=== PATIENT | male | born 1975 | race Caucasian/White ===

== ENCOUNTER 2023-05-18 09:59 | Inpatient (IN) ==
--- NOTE | 2023-05-18 11:01 | XRay Report ---
XR chest 1V portable HISTORY: 48 years-old Male cp/ pain with inspiration COMPARISON: None TECHNIQUE: AP view the chest FINDINGS: Cardiac silhouette is enlarged. No pneumothorax, pleural effusion, airspace consolidation or pulmonar y edema. Bones appear grossly intact. IMPRESSION: Cardiomegaly without acute process. ACT 112: Negative or not required by law. The above report was generated using voice recognition software. It may contain grammatical, syntax o r spelling errors. Electronically signed by: Brandon Agosto M.D. 05/18/2023 10:59 AM
[2023-05-18 11:07] LABS: Basophils # (auto) 0.03 K/uL (0.00-0.20); Basophils % (auto) 0.3 %; Eosinophils # (auto) 0.13 K/uL (0.00-0.50); Eosinophils % (auto) 1.2 %; Hematocrit (blood only) 44.8 % (42.0-52.0); Hemoglobin 15.2 g/dl (14.0-18.0); Immature Granulocytes # (auto) 0.05 K/uL (0.01-0.20); Immature Granulocytes % (auto) 0.5 %; Lymphocytes # (auto) 2.51 K/uL (1.20-3.40); Lymphocytes % (auto) 23.5 %; Mean Corpuscular Hemoglobin 28.3 pg (25.0-34.0); Mean Corpuscular Hgb Conc 33.9 g/dL (32.0-36.0); Mean Corpuscular Volume 83.4 fL (80.0-100.0); Monocytes # (auto) 0.72 K/uL (0.11-0.59); Monocytes % (auto) 6.8 %; Neutrophils # (auto) 7.22 K/uL (1.40-6.50); Neutrophils % (auto) 67.7 %; Platelet Count 198 K/uL (130-400); RDW Coefficient of Variation 12.4 % (11.5-14.5); RDW Standard Deviation 37.6 fL (36.4-46.3); Red Blood Count 5.37 M/uL (4.70-6.10); White Blood Count 10.66 K/ul (4.8-10.8)
[2023-05-18 11:23] LABS: Albumin Globulin Ratio 1.5 (0.9-2); Albumin Level 4.2 gm/dl (3.4-5.0); BUN Creatinine Ratio 14.2 (10-20); Bilirubin,Total 2.5 mg/dl (0.2-1.0); Calcium 9.4 mg/dl (8.6-10.3); Creatinine Clr Calc Pharmacy 114.6 ml/min; Est GFR (African American) 83.5 ml/min; Est GFR (Non-African American) 72.1 ml/min; Globulin 2.8 gm/dl (2.5-4.0); Potassium 3.7 mmol/L (3.5-5.1)
--- NOTE | 2023-05-18 11:28 | Emergency Department Note ---
Impression & Plan Chest pain, Cholecystitis, Abnormal EKG ED Provider Note NAME: BASILIO BARRETT AGE: 48 SEX: M : 1975 ARRIVES VIA: Ambulance INFORMANT: Patient, ED PROVIDER(S): Tawanda Bond DO CHIEF COMPLAINT: Chest pain HPI: The patient is a 48-year-old male who presented to the emergency department for an evaluation of chest pain. The patient called 911. He was at his ask. He was not exerting himself. He noticed an acute onset of chest discomfort. At that time he was diaphoretic and feeling very short of breath. He arrived via ambulance. He received nitroglycerin spray as well as aspirin prior to arrival. Upon arrival here the patient's pain is significantly improved. The patient denies having any leg swelling. He does have a family history in his father of coronary artery disease. He does not have a history of tobacco use or diabetes but does have a history of hypertension. ROS: See above HPI for pertinent positives & negatives. A total of 10 systems reviewed and were otherwise negative. PAST MEDICAL HISTORY: See Below PAST SURGICAL HISTORY: See Below FAMILY HISTORY: See Below SOCIAL HISTORY: See Below HOME MEDICATIONS: See Below ALLERGIES: See Below VITALS: See Below PHYSICAL EXAMINATION: GENERAL: Patient is awake alert in no acute distress patient is resting comfortably and showing no signs of anxiety EYES: The conjunctivae are clear. The pupils are round and reactive. EARS, NOSE, MOUTH AND THROAT: The nose is without any evidence of any deformity. NECK: The neck is nontender and supple. RESPIRATORY: Normal respiratory effort is noted there is no evidence of wheezing rhonchi or rales CARDIOVASCULAR: Regular rate and rhythm noted there no murmurs rubs or gallops normal S1 normal S2. GASTROINTESTINAL: The abdomen is soft. Abdomen is nontender. MUSCULOSKELETAL/EXTREMITIES: There is no evidence of gross deformity full range of motion is noted in the hips and shoulders. SKIN: There is no obvious evidence of any rash. There are no petechiae, pallor or cyanosis noted. NEUROLOGIC: Patient is awake alert and oriented x3 MEDICAL DECISION MAKING: The patient is a 48-year-old male who presented to the emergency department for evaluation of chest discomfort. The patient described lower chest pain. Upon arrival he was found to have an abnormal EKG with what appeared to be Wellens T wave inversions in the anterior leads. The patient was significantly improved with his pain. He did not have an acute surgical abdomen on my physical exam. For this reason the patient had initial work-up of his pain in the emergency d epartment including serial troponin measurements serial EKG measurements as well as an ultrasound when his laboratory studies reveal elevation in his liver function studies. The patient does have a family history of coronary artery disease. I discussed his condition with the on-call metal trim erector as well as the hospitalist group and the general surgical group. Given the patient's elevation in his bilirubin they requested an MRCP prior to proceeding forward with any surgical intervention on the presumed cholecystitis noted on ultrasound. I did receive a message from the reading radiologist after the patient was already admitted but the patient had findings consistent with an aortic dissection on the MRCP. I discussed this again with the [facility] hospitalist. Preparations were made for transfer to a tertiary center for vascular surgery evaluation. The patient did not receive heparin. The patient had blood pressure control with IV blood pressure medications once the diagnosis was made in the [facility]ist group. Triage Nursing notes reviewed. Prior medical records reviewed Vital Signs: reviewed and remarkable for Elevated blood pressure. Differential diagnosis: Cardiac ischemia, aortic dissection, pulmonary embolism, pneumothorax, pneumonia, pericarditis, myocarditis, esophageal rupture, GERD, cholecystitis, pancreatitis, musculoskeletal, as well as other pathologies. ER treatment provided: See below Diagnostics interpreted by me: ECG: EKG was obtained in the emergency department. My interpretation is sinus bradycardia at 50 bpm. PAC was noted. There is no acute ST segment abnormalities noted. A biphasic T wave is noted in the anterior leads. This could be consistent with ischemia. No previous EKG was noted A second EKG was obtained in the emergency department. The patient was pain- free with this EKG. My interpretation is normal sinus rhythm at 74 bpm. There is no ectopy. There is no acute ST segment abnormalities noted. The biphasic T wave has now resolved. Prehospital was obtained in the emergency department. My interpretation is sinus bradycardia at 50 bpm. PAC was noted.. There is no acute ST segment a bnormalities noted. This looks similar to the EKG was obtained in the emergency department Cardiac Monitoring: An order was placed for continuous cardiac monitoring. The monitor shows a rate of 77 bpm with sinus rhythm. Laboratory studies: As stated above and show below. Imaging studies: See below. Radiographic imaging was reviewed by myself Consultation(s): I discussed this case with Dr. Cerda who is on-call for [facility] rdiology. I discussed this case with Isaura who is on for general surgery. I discussed this case with Dr. Diaz who is on-call for the [facility] hospitalist group. ED COURSE: Procedures: none The patient was placed in observation status at 1024. The patient was placed in observation for chest pain work-up. During the time in observation, the patient was frequently reassessed and received Serial troponin measurements as well as serial EKGs. On Final reassessment the patient Was found to have no elevation in his troponin or worsening ischemic changes on EKG and the patient will be Evaluated by the hospitalist for inpatient management given his abnormal EKG at this time. A total observation time of 2 hours. Past Med/Surg History Medical History Hypertension Social History Smoking Status: Never smoker Second Hand Exposure: No; Hx Alcohol Use: No Hx Substance Use: No Preferred Language: Swedish Communication Ability: Effective Fur Pointer Required: No Beliefs That Will Affect Care: None Current Living Situation: Spouse Current Living Situation Comment: 2 story house Feels Safe at Home: Yes Safety Concerns: Feels Safe At This Time Assistive Devices: None Allergies Allergies Allergy/AdvReac Type Severity Reaction Status Date / Time morphine Allergy Intermediate WHEN GIVEN Verified 03/14/21 17:20 IV-ARM SWELLED UP Home Meds Home Medications Medication Instructions Recorded Confirmed No Known Home Medications 05/18/23 05/18/23 Results & Data (ED) Vital Signs Vital Signs - 24 hr 05/18/23 10:25 05/18/23 10:29 05/18/23 11:18 Temperature 36.9 C Temperature Source Temporal Artery Scan Pulse Rate 52 L 53 L Pulse Rate [Apical] Pulse Rate from SpO2 Sensor Pulse Rhythm [Apical] Pulse Strength [Apical] Respiratory Rate 18 Respiratory Effort / Characteristics Respiratory Depth Respiratory Pattern Blood Pressure 165/99 H Blood Pressure [Right Arm] Blood Pressure Mean 121 Blood Pressure Mean [Right Arm] Blood Pressure Position [Right Arm] Pulse Oximetry 96 98 Oxygen Delivery Method Room Air Room Air Sepsis Recent Fever Within 48 Hours No Sepsis New/Unexplained Change in Mental Status N/A Sepsis Action Taken by Nursing No Action Required 05/18/23 11:23 05/18/23 14:05 05/18/23 11:16 Temperature Temperature Source Pulse Rate 55 L Pulse Rate [Apical] 59 L 58 L Pulse Rate from SpO2 Sensor 62 Pulse Rhythm [Apical] Regular Regular Pulse Strength [Apical] Normal Normal Respiratory Rate 17 17 18 Respiratory Effort / Characteristics Non-Labored Spontaneous Non-Labored Spontaneous Respiratory Depth Normal Normal Respiratory Pattern Regular Regular Blood Pressure Blood Pressure [Right Arm] 161/99 H 143/96 H Blood Pressure Mean Blood Pressure Mean [Right Arm] 119 111 Blood Pressure Position [Right Arm] Semi-fowlers Semi-fowlers Pulse Oximetry 97 97 96 Oxygen Delivery Method Room Air Room Air Sepsis Recent Fever Within 48 Hours Sepsis New/Unexplained Change in Mental Status Sepsis Action Taken by Nursing 05/18/23 11:30 05/18/23 12:30 05/18/23 13:00 Temperature Temperature Source Pulse Rate 60 52 L 52 L Pulse Rate [Apical] Pulse Rate from SpO2 Sensor 56 L 56 L Pulse Rhythm [Apical] Pulse Strength [Apical] Respiratory Rate 17 21 24 Respiratory Effort / Characteristics Respiratory Depth Respiratory Pattern Blood Pressure 141/81 H 154/86 H Blood Pressure [Right Arm] Blood Pressure Mean 101 108 Blood Pressure Mean [Right Arm] Blood Pressure Position [Right Arm] Pulse Oximetry 95 97 Oxygen Delivery Method Sepsis Recent Fever Within 48 Hours Sepsis New/Unexplained Change in Mental Status Sepsis Action Taken by Nursing 05/18/23 13:01 05/18/23 13:30 05/18/23 13:31 Temperature Temperature Source Pulse Rate 63 54 L 60 Pulse Rate [Apical] Pulse Rate from SpO2 Sensor 51 L 69 Pulse Rhythm [Apical] Pulse Strength [Apical] Respiratory Rate 19 20 16 Respiratory Effort / Characteristics Respiratory Depth Respiratory Pattern Blood Pressure 165/80 H 159/103 H Blood Pressure [Right Arm] Blood Pressure Mean 108 121 Blood Pressure Mean [Right Arm] Blood Pressure Position [Right Arm] Pulse Oximetry 97 96 Oxygen Delivery Method Sepsis Recent Fever Within 48 Hours Sepsis New/Unexplained Change in Mental Status Sepsis Action Taken by Nursing 05/18/23 14:00 Temperature Temperature Source Pulse Rate 56 L Pulse Rate [Apical] Pulse Rate from SpO2 Sensor 64 Pulse Rhythm [Apical] Pulse Strength [Apical] Respiratory Rate 21 Respiratory Effort / Characteristics Respiratory Depth Respiratory Pattern Blood Pressure 143/96 H Blood Pressure [Right Arm] Blood Pressure Mean 111 Blood Pressure Mean [Right Arm] Blood Pressure Position [Right Arm] Pulse Oximetry 96 Oxygen Delivery Method Sepsis Recent Fever Within 48 Hours Sepsis New/Unexplained Change in Mental Status Sepsis Action Taken by Skilled Nursing Medications Current Medication List: was personally reviewed by me Laboratory Data Attestation: I reviewed the patient's lab results. 05/18/23 10:24 05/18/23 10:24 Lab Results 05/18/23 05/18/23 05/18/23 Range/Units 10:24 10:24 10:24 WBC 10.66 (4.8-10.8) K/ul RBC 5.37 (4.70-6.10) M/uL Hgb 15.2 (14.0-18.0) g/dl Hct 44.8 (42.0-52.0) % MCV 83.4 (80.0-100.0) fL MCH 28.3 (25.0-34.0) pg MCHC 33.9 (32.0-36.0) g/dL RDW Std Deviation 37.6 (36.4-46.3) fL RDW Coeff of Volodymyr 12.4 (11.5-14.5) % Plt Count 198 (130-400) K/uL MPV 10.0 (9.4-12.4) fL Immature Gran % (Auto) 0.5 % Neut % (Auto) 67.7 % Lymph % (Auto) 23.5 % [place] % (Auto) 6.8 % Eos % (Auto) 1.2 % Baso % (Auto) 0.3 % Neut # (Auto) 7.22 H (1.40-6.50) K/uL Lymph # (Auto) 2.51 (1.20-3.40) K/uL [place] # (Auto) 0.72 H (0.11-0.59) K/uL Eos # (Auto) 0.13 (0.00-0.50) K/uL Baso # (Auto) 0.03 (0.00-0.20) K/uL Immature Gran # (Auto) 0.05 (0.01-0.20) K/uL PT 12.4 H (9.0-12.0) Seconds INR 1.1 (0.9-1.1) APTT 28.2 (21.0-31.0) Seconds PTT Ratio 1.0 Sodium 137 (136-145) mmol/L Potassium 3.7 (3.5-5.1) mmol/L Chloride 101 (98-107) mmol/L Carbon Dioxide 31 (21-32) mmol/L Anion Gap 5 (3-11) BUN 17 (6-23) mg/dl Creatinine 1.20 (0.6-1.4) mg/dl Est Cr Clr Drug Dosing 114.6 ml/min Est GFR ( Amer) 83.5 ml/min Est GFR (Non-Af Amer) 72.1 ml/min BUN/Creatinine Ratio 14.2 (10-20) Glucose 112 H (70-99(Fasting)) mg/dl Calcium 9.4 (8.6-10.3) mg/dl Total Bilirubin 2.5 H (0.2-1.0) mg/dl Direct Bilirubin (0-0.2) mg/dl AST 95 H (13-39) U/L ALT 89 H (7-52) U/L Alkaline Phosphatase 49 (34-104) U/L Troponin I High Sens 6.6 (0-20) pg/ml Total Protein 7.0 (6.0-8.3) gm/dl Albumin 4.2 (3.4-5.0) gm/dl Globulin 2.8 (2.5-4.0) gm/dl Albumin/Globulin Ratio 1.5 (0.9-2) 05/18/23 Range/Units 13:18 WBC (4.8-10.8) K/ul RBC (4.70-6.10) M/uL Hgb (14.0-18.0) g/dl Hct (42.0-52.0) % MCV (80.0-100.0) fL MCH (25.0-34.0) pg MCHC (32.0-36.0) g/dL RDW Std Deviation (36.4-46.3) fL RDW Coeff of Volodymyr (11.5-14.5) % Plt Count (130-400) K/uL MPV (9.4-12.4) fL Immature Gran % (Auto) % Neut % (Auto) % Lymph % (Auto) % [place] % (Auto) % Eos % (Auto) % Baso % (Auto) % Neut # (Auto) (1.40-6.50) K/uL Lymph # (Auto) (1.20-3.40) K/uL [place] # (Auto) (0.11-0.59) K/uL Eos # (Auto) (0.00-0.50) K/uL Baso # (Auto) (0.00-0.20) K/uL Immature Gran # (Auto) (0.01-0.20) K/uL PT (9.0-12.0) Seconds INR (0.9-1.1) APTT (21.0-31.0) Seconds PTT Ratio Sodium (136-145) mmol/L Potassium (3.5-5.1) mmol/L Chloride (98-107) mmol/L Carbon Dioxide (21-32) mmol/L Anion Gap (3-11) BUN (6-23) mg/dl Creatinine (0.6-1.4) mg/dl Est Cr Clr Drug Dosing ml/min Est GFR ( Amer) ml/min Est GFR (Non-Af Amer) ml/min BUN/Creatinine Ratio (10-20) Glucose (70-99(Fasting)) mg/dl Calcium (8.6-10.3) mg/dl Total Bilirubin (0.2-1.0) mg/dl Direct Bilirubin 0.4 H (0-0.2) mg/dl AST (13-39) U/L ALT (7-52) U/L Alkaline Phosphatase (34-104) U/L Troponin I High Sens 8.0 (0-20) pg/ml Total Protein (6.0-8.3) gm/dl Albumin (3.4-5.0) gm/dl Globulin (2.5-4.0) gm/dl Albumin/Globulin Ratio (0.9-2) Administered Medications Discontinued Medications Esmolol HCl (Esmolol Bolus From Bag) 500 mg IV ONE ONE Stop: 05/18/23 19:01 Last Admin: 05/18/23 20:07 Dose: Not Given Documented By: TMG Esmolol HCl (Esmolol Bolus From Bag) 100 mg IV ONE ONE Stop: 05/18/23 20:58 Last Admin: 05/18/23 22:04 Dose: 100 mg Documented By: GABINOG Co-signed By: LELA Fentanyl Citrate (Fentanyl Citrate Pf 100 Mcg/2 Ml Vial) 50 mcg IV Q15M PRN PRN Reason: Pain Stop: 06/01/23 14:17 Last Admin: 05/18/23 15:08 Dose: 50 mcg Documented By: SURAJ Cefoxitin Sodium (Mefoxin) 2,000 mg in 60 mls @ 100 mls/hr IV NOW STA Stop: 05/18/23 13:43 Last Infusion: 05/18/23 14:14 Dose: 0 mls/hr Documented By: Admin: 05/18/23 13:29 Dose: 100 mls/hr Documented By: SURAJ Cefoxitin Sodium 2,000 mg/ (Dextrose) 60 mls @ 100 mls/hr IV Q6H CALISTA; Protocol Stop: 05/28/23 19:29 Last Infusion: 05/18/23 20:35 Dose: 0 mls/hr Documented By: Admin: 05/18/23 19:59 Dose: 100 mls/hr Documented By: MELLISSA Lactated Ringer's (Lr) 1,000 mls @ 125 mls/hr IV .Q8H CALISTA Stop: 06/17/23 16:57 Last Admin: 05/18/23 18:24 Dose: 125 mls/hr Documented By: PAGE Acetaminophen (Ofirmev) 1,000 mg in 100 mls @ 400 mls/hr IV Q8H PRN PRN Reason: pain/fever Stop: 05/21/23 17:03 Last Infusion: 05/18/23 18:25 Dose: 0 mls/hr Documented By: Admin: 05/18/23 17:21 Dose: 400 mls/hr Documented By: PAGE Esmolol HCl (Brevibloc) 2,500 mg in 250 mls @ 232.2 mls/hr IV .Q1H5M CALISTA; Protocol Stop: 06/17/23 18:59 Last Admin: 05/18/23 21:11 Dose: 300 mcg/kg/min, 232.2 mls/hr Documented By: MELLISSA Co-signed By: ELISA Titration: 05/18/23 21:05 Dose: 300 mcg/kg/min, 232.2 mls/hr Documented By: MELLISSA Co-signed By: HFS Titration: 05/18/23 20:46 Dose: 300 mcg/kg/min, 232.2 mls/hr Documented By: Titration: 05/18/23 20:44 Dose: 275 mcg/kg/min, 212.9 mls/hr Documented By: Titration: 05/18/23 20:18 Dose: 250 mcg/kg/min, 193.5 mls/hr Documented By: Titration: 05/18/23 20:04 Dose: 200 mcg/kg/min, 154.8 mls/hr Documented By: Titration: 05/18/23 19:48 Dose: 150 mcg/kg/min, 116.1 mls/hr Documented By: Titration: 05/18/23 19:38 Dose: 100 mcg/kg/min, 77.4 mls/hr Documented By: Admin: 05/18/23 19:28 Dose: 50 mcg/kg/min, 38.7 mls/hr Documented By: TMG Co-signed By: LELA Labetalol HCl (Labetalol Hcl Iv 5 Mg/Ml 20ml) 10 mg IV NOW STA Stop: 05/18/23 18:41 Last Admin: 05/18/23 20:07 Dose: Not Given Documented By: MELLISSA Ondansetron HCl (Ondansetron Inj 2 Mg/Ml 2 Ml Vial) 4 mg IV NOW STA Stop: 05/18/23 14:19 Last Admin: 05/18/23 14:25 Dose: 4 mg Documented By: SURAJ Imaging Data Attestation: I personally reviewed and interpreted this imaging study as follows: My Impression: 1 view chest x-ray was obtained in the emergency department. My interpretation is no free air or definite infiltrate, final report below. Radiologist's Impression: Chest X-Ray 05/18/23 10:30 XR chest 1V portable HISTORY: 48 years-old Male cp/ pain with inspiration COMPARISON: None TECHNIQUE: AP view the chest FINDINGS: Cardiac silhouette is enlarged. No pneumothorax, pleural effusion, airspace consolidation or pulmonary edema. Bones appear grossly intact. IMPRESSION: Cardiomegaly without acute process. ACT 112: Negative or not required by law. The above report was generated using voice recognition software. It may contain grammatical, syntax or spelling errors. Electronically signed by: Brandon Agosto M.D. 05/18/2023 10:59 AM Gallbladder Ultrasound 05/18/23 11:56 ABDOMINAL ULTRASOUND, RIGHT UPPER QUADRANT HISTORY: Acute upper abdominal pain upper abd pain. COMPARISON: None. FINDINGS: Limited exam secondary to patient body habitus. Pancreas: The pancreas is mostly obscured by bowel gas. Liver: Heterogeneous with possibly increased echogenicity. No hepatic mass identified. Gallbladder: Distended gallbladder with intraluminal sludge and layering cholelithiasis. Gallbladder wall is upper limits of normal at 3 mm. No definite pericholecystic fluid identified. Negative sonographic Watkins's sign. CBD: 0.4 cm. Right kidney: No hydronephrosis. IMPRESSION: 1. Cholelithiasis with gallbladder distention and borderline wall thickening. Findings are equivocal for acute cholecystitis. Findings could be correlated with nuclear medicine hepatobiliary scan. 2. No biliary ductal dilation. ACT 112: Negative or not required by law. Electronically signed by: Brandon Agosto M.D. 05/18/2023 1:03 PM Discharge Plan Visit Data Chief Complaint: Chest Pain Stated Complaint: CHEST PAIN, SOB, LEG WEAKNESS ED Provider: Tawanda Bond Discharge Problem: Chest pain, Cholecystitis, Abnormal EKG Patient Disposition: Admitted As Inpatient Discharge Instructions Interventions: ED Discharge Assessment Last Done: 05/18/23 17:59 Chest pain Qualifiers: Chest pain type: unspecified Qualified Code(s): R07.9 - Chest pain, unspecified
[2023-05-18 11:29] LABS: Troponin I High Sensitivity 6.6 pg/ml (0-20)
[2023-05-18 11:37] LABS: INR 1.1 (0.9-1.1); Partial Thromboplastin Time 28.2 Seconds (21.0-31.0); Prothrombin Time 12.4 Seconds (9.0-12.0)
--- NOTE | 2023-05-18 13:05 | Ultrasound Report ---
ABDOMINAL ULTRASOUND, RIGHT UPPER QUADRANT HISTORY: Acute upper abdominal pain upper abd pain. COMPARISON: None. FINDINGS: Limited exam secondary to patient body habitus. Pancreas: The pancreas is mostly obscured by bowel gas. Liver: Heterogeneous with possibly increased echogenicity. No hepatic mass identified. Gallbladder: Distended gallbladder with intraluminal sludge and layering cholelithiasis. Gallbladder wall is upper limits of normal at 3 mm. No definite pericholecystic fluid identified. Negative sonogr aphic Watkins's sign. CBD: 0.4 cm. Right kidney: No hydronephrosis. IMPRESSION: 1. Cholelithiasis with gallbladder distention and borderline wall thickening. Findings are equivocal for acute cholecystitis. Findings could be correlated with nuclear medicine hepatobiliary scan. 2. No biliary ductal dilation. ACT 112: Negative or not required by law. Electronically signed by: Brandon Agosto M.D. 05/18/2023 1:03 PM
[2023-05-18] MEDS ORDERED: cefOXitin 2,000 MG/60 ML BAG IV STA (13:08)
[2023-05-18 13:55] LABS: Bilirubin Direct 0.4 mg/dl (0-0.2)
--- NOTE | 2023-05-18 14:05 | XCELERA ---
[id number]
[2023-05-18] MEDS ORDERED: ONDANSETRON INJ 2 MG/ML 2 ML VIAL IV STA (14:18)
[2023-05-18] MEDS ORDERED: fentaNYL citrate PF 100 MCG/2 ML VIAL IV PRN (14:18)
--- NOTE | 2023-05-18 14:22 | History & Physical Report ---
Date of Service May 18, 2023 Assessment & Plan (1) Cholecystitis: Plan: Acute cholecystitis Elevated transaminitis, bilirubin, direct bilirubin - Gallbladder ultrasound: Cholelithiasis with gallbladder distention and borderline thickening. Equivocal for acute huber. - CXR: cardiomegaly. naf -Continue cefoxitin, surgery consulted No evidence of ductal obstruction; MRCP is pending. If evidence of ductal obstruction/stones are noted we will consult GI Surgery consulted Chest pain Initial concern for Biphasic T waves in V1/V2 ?Wellens.2 troponins negative. Echo is normal. Reviewed with cardiology, does not fit classic deep inversion pattern and no ST segment changes or other territorial signs of ischemia. Low suspicion that this represents ischemic etiology of his pain. Can follow clinically for chest pain, no additional ischemic work-up at this time. DVT prophylaxis: Lovenox Diet: N.p.o. Disposition: Medical/telemetry given initial chest pain, downgrade to MedSurg if stable CODE STATUS: Full code (2) Chest pain: History of Present Illness Primary Care Provider: IRA Garcia 10 minutes of pain in his chest and lightheaded. Did feel anxious an dshort of breath during the episode. NO prior history of this. He reports he has had intermittent stomach discomfort, right upper quadrant discomfort, and GERD symptoms. His episode of 10 minutes of pain seem to go up higher into his mid chest this time which is unusual and was associated shortness of breath approximately 10 minutes. He reports his father had a history of quad bypass in his early 60s, no other family history of heart disease or strokes. Patient has no prior cardiac history. He reports he is able to walk, go upstairs, and do general daily activities with no induction of chest pain or shortness of breath prior to this episode. He has not had episodes of chest pain at rest. He notes his pain did start after eating and is mostly located at his epigastrium/right sided epigastrium at time of assessment. Denies tobacco use. No history of diabetes or hypertension. Takes no medications. No antibiotic allergies. Does feel nauseous at time of admission Medical History: Reviewed Medications: Reviewed Surgical History: Reviewed Family history: Reviewed Allergies: Reviewed Social History: No tobacco, denies alcohol use Code Status: Full code Allergies Allergy/AdvReac Type Severity Reaction Status Date / Time morphine Allergy Intermediate WHEN GIVEN Verified 03/14/21 17:20 IV-ARM SWELLED UP Home Medications Medication Instructions Recorded Confirmed Type No Known Home Medications 05/18/23 05/18/23 History Past Med/Surg History Medical History Hypertension Social History Smoking Status: Never smoker Feels Safe at Home: Yes Physical Exam Physical Exam: General: A&Ox3. NAD. Cooperative. HEENT: Atraumatic, normocephalic. Pulm: CTAB A&P. -wheezes, -rales, -rhonchi. Symmetrical chest rise. No increased work of breathing. No respiratory distress. Cardiac: RRR, -mrg. Radial pulses intact and symmetrical. Abdominal: Right upper quadrant tenderness to palpation, mild epigastric tenderness to palpation. No rebound. Abdomen soft Extremities: Warm, dry. No edema Results & Data Results & Data Vital Signs (Past 12 Hours) Vital Signs Temp Pulse Pulse Resp BP BP Pulse Ox 05/18/23 11:23 59 L 17 161/99 H 97 05/18/23 11:18 53 L 05/18/23 10:29 98 05/18/23 10:25 36.9 C 52 L 18 165/99 H 96 O2 Del Method 05/18/23 11:23 Room Air 05/18/23 11:18 05/18/23 10:29 Room Air 05/18/23 10:25 Room Air PG Care Time/CCT Total # of Minutes Spent Total Time Spent with Patient: Total time spent is greater than 50% in coordination of care (as documented) at patient's floor/unit and/or counseling patient: Coding Level of Care Code 13030 INT INP/OBS CARE 2/55MIN Diagnoses Cholecystitis K81.9 Chest pain R07.9
[2023-05-18] MEDS ORDERED: ONDANSETRON INJ 2 MG/ML 2 ML VIAL IV PRN (14:40)
[2023-05-18] MEDS ORDERED: MoRPHine SULFATE 2 MG/ML CARP IV PRN (14:40)
--- NOTE | 2023-05-18 14:46 | Surgery Consultation ---
I saw and examined patient and agree with the above plan. Moderate tenderness in RUQ. Date of Consultation May 18, 2023 Assessment & Plan (1) Chest pain: (2) Cholecystitis: Plan 48 year-old male with no significant past medical history who presented to ED due to severe chest pain with shortness of breath, sweating, and nausea. Cardiac work-up negative. Labs show elevated t. bili, d. bili and lfts. Ultrasound equivocal for acute cholecystitis. Plan: Recommend further evaluation with MRCP to rule out biliary obstruction due to elevated bilirubin and lfts. Hospitalist admitted patient, no further ischemic work-up required, cardiology consulted in ED felt EKG changes likely not ischemic and chest pain referred from abdominal pain, ECHO unremarkable. Recommend IV antibiotics pain management will plan for laparoscopic cholecystectomy once MRCP obtain to rule out biliary obstruction, likely Sunday Discussed with Dr. wang who agrees with above. History of Present Illness Reason for Consultation: Possible cholecystitis elevated lfts Requesting Physician: Dr. Bond Attending Physician: Dr. Tona MD History of Present Illness Eber is a 48 year-old male who presented to emergency room this morning due to sudden onset of chest pain rating 9/10 with associated sweating, shortness of breath and nausea. States pain was sudden at 9 am. No history of similar pain. Thought he was having a heart attack. Denies of any recent issues with postprandial abdominal pain, bloating, nausea. No history of gallbladder issues. States father had cardiac bypass. Denies of any recent fever, chills, vomiting, changes in bowel habits, diarrhea, constipation, blood in stools, black/tarry stools, loren colored stools, dark tea colored urine. No history of abdominal surgeries. No blood thinning agents. ER work-up included labs which showed no leukocytosis. T. bili, d. bili, lfts elevated. Troponin x 2 negative. ECHO unremarkable. EKG reviewed with cardiology and felt to be not ischemic. Chest pain likely referred from abdominal pain. Eber currently states he is having more upper mid abdominal pain with radiation to his back rating 3/10. Comes in waves. The severe chest pain has resolved. Mild nausea. Has not had any pain medication. Allergies Allergy/AdvReac Type Severity Reaction Status Date / Time morphine Allergy Intermediate WHEN GIVEN Verified 03/14/21 17:20 IV-ARM SWELLED UP Home Medications Medication Instructions Recorded Confirmed Type No Known Home Medications 05/18/23 05/18/23 History Patient History Medical History Hypertension Social History Smoking Status: Never smoker Feels Safe at Home: Yes Review of Systems Review of Systems: All systems reviewed & are unremarkable except as noted in HPI & below Physical Exam Constitutional: WD/WN, vitals as above cooperative; no acute distress and not ill appearing Respiratory: normal respiratory effort, lungs clear to auscultation Cardiovascular: RRR, no murmur, no edema Gastrointestinal (Abdomen): Inspection/Auscultation: abdomen normal to inspection; abdomen not distended Percussion/Palpation: + abdomen tender (RUQ and epigastrium), + guarding (RUQ) and abdomen soft; abdomen not rigid and abdomen not firm positive murphys sign Skin: no rashes, warm and dry no jaundice Psychiatric: A+Ox3, euthymic affect Results & Data Vital Signs (Past 12 Hours) Vital Signs Temp Pulse Pulse Resp BP BP Pulse Ox 05/18/23 14:00 56 L 21 143/96 H 96 05/18/23 13:31 60 16 159/103 H 96 05/18/23 13:30 54 L 20 165/80 H 97 05/18/23 13:01 63 19 05/18/23 13:00 52 L 24 05/18/23 12:30 52 L 21 154/86 H 97 05/18/23 11:30 60 17 141/81 H 95 05/18/23 11:16 55 L 18 96 05/18/23 14:05 58 L 17 143/96 H 97 05/18/23 11:23 59 L 17 161/99 H 97 05/18/23 11:18 53 L 05/18/23 10:29 98 05/18/23 10:25 36.9 C 52 L 18 165/99 H 96 O2 Del Method 05/18/23 14:00 05/18/23 13:31 05/18/23 13:30 05/18/23 13:01 05/18/23 13:00 05/18/23 12:30 05/18/23 11:30 05/18/23 11:16 05/18/23 14:05 Room Air 05/18/23 11:23 Room Air 05/18/23 11:18 05/18/23 10:29 Room Air 05/18/23 10:25 Room Air Laboratory Results 05/18/23 05/18/23 05/18/23 Range/Units 13:18 10:24 10:24 WBC (4.8-10.8) K/ul RBC (4.70-6.10) M/uL Hgb (14.0-18.0) g/dl Hct (42.0-52.0) % MCV (80.0-100.0) fL MCH (25.0-34.0) pg MCHC (32.0-36.0) g/dL RDW Std Deviation (36.4-46.3) fL RDW Coeff of Volodymyr (11.5-14.5) % Plt Count (130-400) K/uL MPV (9.4-12.4) fL Immature Gran % (Auto) % Neut % (Auto) % Lymph % (Auto) % Coleman % (Auto) % Eos % (Auto) % Baso % (Auto) % Neut # (Auto) (1.40-6.50) K/uL Lymph # (Auto) (1.20-3.40) K/uL Coleman # (Auto) (0.11-0.59) K/uL Eos # (Auto) (0.00-0.50) K/uL Baso # (Auto) (0.00-0.20) K/uL Immature Gran # (Auto) (0.01-0.20) K/uL PT 12.4 H (9.0-12.0) Seconds INR 1.1 (0.9-1.1) APTT 28.2 (21.0-31.0) Seconds PTT Ratio 1.0 Sodium 137 (136-145) mmol/L Potassium 3.7 (3.5-5.1) mmol/L Chloride 101 (98-107) mmol/L Carbon Dioxide 31 (21-32) mmol/L Anion Gap 5 (3-11) BUN 17 (6-23) mg/dl Creatinine 1.20 (0.6-1.4) mg/dl Est Cr Clr Drug Dosing 114.6 ml/min Est GFR ( Amer) 83.5 ml/min Est GFR (Non-Af Amer) 72.1 ml/min BUN/Creatinine Ratio 14.2 (10-20) Glucose 112 H (70-99(Fasting)) mg/dl Calcium 9.4 (8.6-10.3) mg/dl Total Bilirubin 2.5 H (0.2-1.0) mg/dl Direct Bilirubin 0.4 H (0-0.2) mg/dl AST 95 H (13-39) U/L ALT 89 H (7-52) U/L Alkaline Phosphatase 49 (34-104) U/L Troponin I High Sens 8.0 6.6 (0-20) pg/ml Total Protein 7.0 (6.0-8.3) gm/dl Albumin 4.2 (3.4-5.0) gm/dl Globulin 2.8 (2.5-4.0) gm/dl Albumin/Globulin Ratio 1.5 (0.9-2) 05/18/23 Range/Units 10:24 WBC 10.66 (4.8-10.8) K/ul RBC 5.37 (4.70-6.10) M/uL Hgb 15.2 (14.0-18.0) g/dl Hct 44.8 (42.0-52.0) % MCV 83.4 (80.0-100.0) fL MCH 28.3 (25.0-34.0) pg MCHC 33.9 (32.0-36.0) g/dL RDW Std Deviation 37.6 (36.4-46.3) fL RDW Coeff of Volodymyr 12.4 (11.5-14.5) % Plt Count 198 (130-400) K/uL MPV 10.0 (9.4-12.4) fL Immature Gran % (Auto) 0.5 % Neut % (Auto) 67.7 % Lymph % (Auto) 23.5 % Coleman % (Auto) 6.8 % Eos % (Auto) 1.2 % Baso % (Auto) 0.3 % Neut # (Auto) 7.22 H (1.40-6.50) K/uL Lymph # (Auto) 2.51 (1.20-3.40) K/uL Coleman # (Auto) 0.72 H (0.11-0.59) K/uL Eos # (Auto) 0.13 (0.00-0.50) K/uL Baso # (Auto) 0.03 (0.00-0.20) K/uL Immature Gran # (Auto) 0.05 (0.01-0.20) K/uL PT (9.0-12.0) Seconds INR (0.9-1.1) APTT (21.0-31.0) Seconds PTT Ratio Sodium (136-145) mmol/L Potassium (3.5-5.1) mmol/L Chloride (98-107) mmol/L Carbon Dioxide (21-32) mmol/L Anion Gap (3-11) BUN (6-23) mg/dl Creatinine (0.6-1.4) mg/dl Est Cr Clr Drug Dosing ml/min Est GFR ( Amer) ml/min Est GFR (Non-Af Amer) ml/min BUN/Creatinine Ratio (10-20) Glucose (70-99(Fasting)) mg/dl Calcium (8.6-10.3) mg/dl Total Bilirubin (0.2-1.0) mg/dl Direct Bilirubin (0-0.2) mg/dl AST (13-39) U/L ALT (7-52) U/L Alkaline Phosphatase (34-104) U/L Troponin I High Sens (0-20) pg/ml Total Protein (6.0-8.3) gm/dl Albumin (3.4-5.0) gm/dl Globulin (2.5-4.0) gm/dl Albumin/Globulin Ratio (0.9-2) Diagnostic Findings ABDOMINAL ULTRASOUND, RIGHT UPPER QUADRANT HISTORY: Acute upper abdominal pain upper abd pain. COMPARISON: None. FINDINGS: Limited exam secondary to patient body habitus. Pancreas: The pancreas is mostly obscured by bowel gas. Liver: Heterogeneous with possibly increased echogenicity. No hepatic mass identified. Gallbladder: Distended gallbladder with intraluminal sludge and layering cholelithiasis. Gallbladder wall is upper limits of normal at 3 mm. No definite pericholecystic fluid identified. Negative sonographic Watkins's sign. CBD: 0.4 cm. Right kidney: No hydronephrosis. IMPRESSION: 1. Cholelithiasis with gallbladder distention and borderline wall thickening. Findings are equivocal for acute cholecystitis. Findings could be correlated with nuclear medicine hepatobiliary scan. 2. No biliary ductal dilation.
--- NOTE | 2023-05-18 14:51 | Electrocardiogram Report ---
Test Reason : Blood Pressure : / mmHG Vent. Rate : 074 BPM Atrial Rate : 074 BPM P-R Int : 224 ms QRS Dur : 108 ms QT Int : 412 ms P-R-T Axes : 029 -03 051 degrees QTc Int : 457 ms Sinus rhythm with 1st degree A-V block Otherwise normal ECG When compared with ECG of 18-MAY-2023 10:11, (unconfirmed) MO interval has increased Vent. rate has increased BY 24 BPM Confirmed by Tawanda Cerda ([id number]) on 05/18/2023 2:51:10 PM Referred By: Confirmed By:Tawanda Cerda
--- NOTE | 2023-05-18 14:55 | Electrocardiogram Report ---
Test Reason : Blood Pressure : / mmHG Vent. Rate : 050 BPM Atrial Rate : 050 BPM P-R Int : 194 ms QRS Dur : 102 ms QT Int : 494 ms P-R-T Axes : 025 -15 057 degrees QTc Int : 450 ms Sinus bradycardia with sinus arrhythmia Otherwise normal ECG No previous ECGs available Confirmed by Tawanda Cerda ([id number]) on 05/18/2023 2:55:02 PM Referred By: Confirmed By:Tawanda Cerda
[2023-05-18] MEDS ORDERED: LACTATED RINGER'S 1,000 ML IV SCH (16:58)
[2023-05-18] MEDS ORDERED: ACETAMINOPHEN 1,000 MG/100 ML VIAL IV PRN (17:04)
[2023-05-18] MEDS ORDERED: HYDROmorphone INJ 0.5 MG/0.5 ML SYR IV PRN (17:06)
[2023-05-18] MEDS ORDERED: INFLUENZA VIRUS QUADRIVALENT VACCINE (IIV4) 0.5 ML SYR IM ONE (17:29)
--- NOTE | 2023-05-18 18:30 | Magnetic Resonance Report ---
MRCP CLINICAL HISTORY: Generalized abdominal pain. Nausea. COMPARISON STUDY: Abdominal ultrasound dated 06/04/2023. TECHNIQUE: Abdominal MRCP is performed utilizing various T2-weighted sequences in the axial and coron al planes. 3-D reformats are created and assessed. IV contrast was not administered for this examinat ion. Diffusion-weighted imaging was performed. FINDINGS: The gallbladder is distended and contains numerous gallstones. There is no gallbladder wall thickenin g or surrounding inflammation to suggest acute cholecystitis. There is no intra or extrahepatic bilia ry ductal dilatation. The common bile duct measures up to 2.5 mm in the diameter. There are no intral uminal filling defects to suggest choledocholithiasis. The pancreatic duct is normal in caliber. The liver is enlarged measuring 20.5 cm in length. There are at least 5 large lobulated T2 hyperinte nse hepatic lesions which measure up to 6.4 cm. These are incompletely characterized but likely repre sent hemangiomas. The unenhanced spleen, adrenal glands, kidneys, and pancreas are grossly unremarkab le. The abdominal aorta is normal in caliber. There is an aortic dissection which extends from the vi sualized descending thoracic aorta to the iliac bifurcation. This may extend into the left common marisela ac artery. No abdominal ascites is identified. There is no abdominal lymphadenopathy. The heart is en larged without pericardial effusion. No pleural effusion is identified. No destructive bony process i s seen. IMPRESSION: 1. Aortic dissection. This extends from the visualized descending thoracic aorta due to the iliac bif urcation. Emergent vascular surgical assessment is advised. 2. Cholelithiasis without MRI evidence of acute cholecystitis. 3. There is no intra or extrahepatic biliary ductal dilatation. 4. There are several indeterminate liver lesions which likely represents hemangiomas. A nonemergent l iver protocol MRI could be considered for further assessment. 5. Additional findings as above. Electronically signed by: German Heart M.D. 05/18/2023 6:27 PM
[2023-05-18] MEDS ORDERED: LABETALOL HCL IV 5 MG/ML 20ML IV STA (18:40)
[2023-05-18] MEDS ORDERED: LABETALOL HCL IV 5 MG/ML 20ML IV PRN (18:50)
[2023-05-18] MEDS ORDERED: STAT IV Infusion **Titration per Protocol STA ×2 (19:00→20:57)
[2023-05-18] MEDS ORDERED: ESMOLOL BOLUS FROM BAG IV ONE ×3 (19:00→20:59)
[2023-05-18] MEDS: ESMOLOL / NSS 2,500 MG/250 ML BAG IV SCH ×2 (19:28→21:11)
[2023-05-18] MEDS ORDERED: cefOXitin 2,000 MG in DEXTROSE 5% 50 ML IV SCH (19:30)
--- NOTE | 2023-05-18 20:04 | Discharge Summary ---
Date of Service May 18, 2023 Admission HPI Per Admitting Provider 10 minutes of pain in his chest and lightheaded. Did feel anxious an dshort of breath during the episode. NO prior history of this. He reports he has had intermittent stomach discomfort, right upper quadrant discomfort, and GERD symptoms. His episode of 10 minutes of pain seem to go up higher into his mid chest this time which is unusual and was associated shortness of breath approximately 10 minutes. He reports his father had a history of quad bypass in his early 60s, no other family history of heart disease or strokes. Patient has no prior cardiac history. He reports he is able to walk, go upstairs, and do general daily activities with no induction of chest pain or shortness of breath prior to this episode. He has not had episodes of chest pain at rest. He notes his pain did start after eating and is mostly located at his epigastrium/right sided epigastrium at time of assessment. Denies tobacco use. No history of diabetes or hypertension. Takes no medications. No antibiotic allergies. Does feel nauseous at time of admission Medical History: Reviewed Medications: Reviewed Surgical History: Reviewed Family history: Reviewed Allergies: Reviewed Social History: No tobacco, denies alcohol use Code Status: Full code Principal Diagnosis Aortic Dissection Discharge Exam See Same Day Admitting Exam On discharge exam PT pulse intact bilaterally. Abdomen soft without guarding/rebound. Mild right upper quadrant epigastric tenderness persists. Heart rate regular Discharge Data Allergies Allergy/AdvReac Type Severity Reaction Status Date / Time morphine Allergy Intermediate WHEN GIVEN Verified 03/14/21 17:20 IV-ARM SWELLED UP Consultations 05/18/23 13:11 Consult General Surgery Stat 05/18/23 13:48 ED Decision to Admit Stat Procedures Performed Operation Date: 05/20/23 08:50 <No data on this case meets the specified criteria> Ordered Studies 05/18/23 11:56 US gallbladder Stat 05/18/23 14:01 MR MRCP Stat Hospital Course (1) Aortic dissection: Patient presented with chest pain suspicious for cardiac etiology versus GERD versus cholecystitis. Patient had had epigastric pain which had newly spread to his substernal which had improved at time of admitting assessment. On ER evaluation had concern for Wellens sign with a normal troponin, echo was normal. Patient was found to have a transaminitis For which a gallbladder ultrasound was performed and was suggestive of acute cholecystitis. Patient was admitted for treatment of suspected acute cholecystitis and MRCP was ordered. MRCP results were reported at approximately 6:30 PM, these showed evidence of acute aortic dissection. Patient was transferred to the ICU and placed on esmolol for impulse control with blood pressure goals 1001 20, pulse goal 6080. Case was reviewed by [facility] and patient was excepted for emergent transport to [facility] by Dr. Husain, Vascular surgery with Dr. Silver ICU in consultation. Patient was transferred emergently for aortic dissection. Patient on reassessment did have intact peripheral pulses, chest pain had improved, abdominal pain was improved but not resolved, and abdomen was soft. [place] [facility] [place]. (2) Cholecystitis: Suspected based on transaminitis and initial ultrasound, follow-up MRCP showed aortic dissection as etiology of patient's pain. No signs of cholecystitis on MRCP (3) Chest pain: Total Time Total Time Spent Total Time Spent (In Minutes): 90 minutes Discharge Plan Discharge Items Patient Disposition: Transfer Acute Care Hospital Reason For Visit: ACUTE GALO, CHEST PAIN Discharge Diagnosis: Aortic Dissection Activity: Per Instructions section Non-emergency contact: Primary Care Provider Call non-emergency contact if: you have any medication questions, your symptoms worsen and your pain is not controlled Follow-up/Referrals: Guerita Rosales CRNP [Primary Care Provider] - Diet: Nothing by Mouth Addtl Attending Provider Instructions: Patient presented with chest pain suspicious for cardiac etiology versus GERD versus cholecystitis. Patient had had epigastric pain which had newly spread to his substernal which had improved at time of admitting assessment. On ER evaluation had concern for Wellens sign with a normal troponin, echo was normal. Patient was found to have a transaminitis For which a gallbladder ultrasound was performed and was suggestive of acute cholecystitis. Patient was admitted for treatment of suspected acute cholecystitis and MRCP was ordered. MRCP results were reported at approximately 6:30 PM, these showed evidence of acute aortic dissection. Patient was transferred to the ICU and placed on esmolol for impulse control with blood pressure goals 1001 20, pulse goal 6080. Case was reviewed by [facility] and patient was excepted for emergent transport to [facility] by Dr. Husain, Vascular surgery with Dr. Silver ICU in consultation. Patient was transferred emergently for aortic dissection. Patient on reassessment did have intact peripheral pulses, chest pain had improved, abdominal pain was improved but not resolved, and abdomen was soft Pending Studies at Discharge: Yes Stand-Alone Forms: My [facility] Skilled Items Patient informed of condition?: Yes DNR: No Discharge Level of Care: Other Communicable Disease: No Discharge Prognosis: Other Lines: Peripheral IV Urinary Catheter: No Medications and DC Order Prescriptions: No Action No Known Home Medications Discharge Orders: Discharge Order (Routine); Ordered 05/18/23 Ordered By: Juan Diego Carbone Admission Data Admit Date/Time: 05/18/23 14:40 Attending Provider: Juan Diego Carbone Admit Provider: Juan Diego Carbone Primary Care Provider: Guerita Rosales Other Providers: Estuardo Carver Other Interventions: Discharge Summary Assessment (RN) Last Done: 05/18/23 22:07 Coding Level of Care Code INP/OBS EV SAME DAY LV 3,85MIN Diagnoses Aortic dissection I71.00 Cholecystitis K81.9 Chest pain R07.9
--- NOTE | 2023-05-18 20:21 | Billing Data ---
Date of Service May 18, 2023 Coding Level of Care Code 57598 CRITICAL CARE 1ST 30-74M Time Spent (min) 50
[2023-05-18] MEDS ORDERED: niCARdipine 25 MG in SODIUM CHLORIDE 0.9% 240 ML IV SCH (21:00)
[2023-05-20] MEDS ORDERED: ACETAMINOPHEN 1000 MG/100 ML IV IV ONE (07:03)
== END 2023-05-18 22:09 | disposition short-term general hospital (02) | DRG 301 ==
LOC: ED 09:59 → 2N 14:40 → 1E 19:25
DX: I10 Essential (primary) hypertension; K81.9 Cholecystitis, unspecified; I71.00 Dissection of unspecified site of aorta; Z88.5 Allergy status to narcotic agent; K21.9 Gastro-esophageal reflux disease without esophagitis